=== PATIENT | female | born 1965 | race Caucasian/White ===

== ENCOUNTER 2017-08-03 14:20 | Emergency (ER) | payer OTHER ==
[2017-08-03 14:59] LABS: Glucose,Whole Blood 449 mg/dL (75-99)
[2017-08-03] MEDS ORDERED: INSULIN REGULAR 100 UNIT/ML VIAL SQ STA (15:17)
[2017-08-03] MEDS ORDERED: SODIUM CHLORIDE 0.9% 2,000 ML IV ONE (15:17)
[2017-08-03 15:38] LABS: Basophils % (A) 0 %; CH 29.3; CHCM 34.8; Eosinophils % (A) 0 %; HCT 43.5 % (34.0-46.0); HDW 2.81; HGB 14.7 gm/dL (11.4-16.0); Luc # (Auto) 0.05; Luc % (Auto) 1; Lymphocytes # (A) 1.6 k/uL (1.0-4.8); Lymphocytes % (A) 37 %; MCH 28.4 pg (25.0-35.0); MCHC 33.7 g/dL (31.0-37.0); MCV 84.4 fL (80.0-100.0); Mean Platelet Volume 7.4; Monocytes # (A) 0.2 k/uL (0-1.0); Monocytes % (A) 5 %; Neutrophils # (A) 2.5 k/uL (1.3-7.7); Neutrophils % (A) 57 %; RBC 5.16 m/uL (3.80-5.40); RDW 13.6 % (11.5-15.5); WBC 4.4 k/uL (3.8-10.6); WBC (Perox) 4.19
[2017-08-03 15:47] LABS: Anion Gap 9 mmol/L; Blood Urea Nitrogen 18 mg/dL (7-17); Calcium 9.5 mg/dL (8.4-10.2); Carbon Dioxide 26 mmol/L (22-30); Chloride 97 mmol/L (98-107); Non-African American GFR(MDRD) >60 (>60 ml/min/1.73 sqM); Potassium 4.5 mmol/L (3.5-5.1); Sodium 132 mmol/L (137-145)
[2017-08-03 15:55] LABS: Glucose 500 mg/dL (74-99)
--- NOTE | 2017-08-03 16:10 | ED ---
Recheck HPI - General Chief Complaint: Recheck/Abnormal Lab/Rx Stated Complaint: Hyperglycemia Time Seen by Provider: 08/03/17 14:38 Source: patient Mode of arrival: ambulatory Limitations: no limitations - History of Present Illness Initial Comments: This patient's 52-year-old woman who presents today because her blood sugars over 500. She states she has history of diabetes taking oral medications. She states that she had been on metformin and another medication but that the metformin was making her not feel well so that she stopped that about a month ago. She states that she ran out of her other medication for number of weeks ago. Over the past 3 days she has been more fatigued than usual and she checked her blood sugar today and found that it was over 500. She is denying other symptoms, including no fever or chills and no symptoms of infection. She states that she does have follow-up already established with the mechanical engineering technician. MD Complaint: abnormal lab -: hour(s) Associated Symptoms: other (Fatigue) - Related Data Home Medications Medication Instructions Recorded Confirmed ALPRAZolam [Xanax] 0.25 mg PO BID PRN 04/14/14 08/03/17 Cetirizine HCl [Zyrtec] 10 mg PO DAILY 04/14/14 08/03/17 Esomeprazole Magnesium [NexIUM] 40 mg PO DAILY 04/14/14 08/03/17 Fenofibrate 160 mg PO DAILY 04/14/14 08/03/17 Ibuprofen [Motrin] 800 mg PO Q8HR PRN 04/14/14 08/03/17 Lisinopril [Zestril] 10 mg PO QAM 04/14/14 08/03/17 Rosuvastatin Calcium [Crestor] 10 mg PO DAILY 04/14/14 08/03/17 Cholecalciferol [Vitamin D3] 2,000 unit PO DAILY 05/03/16 08/03/17 Fesoterodine Fumarate [Toviaz] 4 mg PO DAILY 08/03/17 08/03/17 Venlafaxine HCl ER [Effexor Xr] 150 mg PO DAILY 08/03/17 08/03/17 Allergies Allergy/AdvReac Type Severity Reaction Status Date / Time bacitracin Allergy Rash/Hives Verified 08/03/17 15:06 [From Neosporin ([id number])] bacitracin zinc Allergy Rash/Hives Verified 08/03/17 15:06 [From Neosporin ([id number])] clarithromycin [From Biaxin] Allergy Unknown Verified 08/03/17 15:06 neomycin sulfate Allergy Rash/Hives Verified 08/03/17 15:06 [From Neosporin ([id number])] polymyxin B Allergy Rash/Hives Verified 08/03/17 15:06 [From Neosporin ([id number])] rituximab [From Rituxan] Allergy Rash/Hives Verified 08/03/17 15:06 thimerosal Allergy Rash/Hives Verified 08/03/17 15:06 Review of Systems ROS Statement: Those systems with pertinent positive or pertinent negative responses have been documented in the HPI. ROS Other: All systems not noted in ROS Statement are negative. Constitutional: Denies: fever, chills Respiratory: Denies: cough, dyspnea Cardiovascular: Denies: chest pain, edema, syncope Endocrine: Reports: fatigue Gastrointestinal: Denies: abdominal pain, vomiting, diarrhea Genitourinary: Denies: dysuria, hematuria Musculoskeletal: Denies: back pain Skin: Denies: rash Neurological: Denies: headache, weakness, numbness Past Medical History Past Medical History: Diabetes Mellitus, GERD/Reflux, Hyperlipidemia, Hypertension, Rheumatoid Arthritis (RA) Additional Past Medical History / Comment(s): HX MURMUR, HX MIGRAINES, kidney stones, lithotripsy History of Any Multi-Drug Resistant Organisms: MRSA Date of last positivie culture/infection: 2005 MDRO Source:: RT AXILLA Past Surgical History: Orthopedic Surgery, Uterine Ablation Additional Past Surgical History / Comment(s): HAMMSTEVE, ORIF right ankle Past Anesthesia/Blood Transfusion Reactions: No Reported Reaction Past Psychological History: Anxiety Smoking Status: Former smoker Past Alcohol Use History: None Reported Past Drug Use History: None Reported - Past Family History Mother Additional Family Medical History / Comment(s): BRAIN ANEURYSM Father Family Medical History: Cancer Additional Family Medical History / Comment(s): COLON General Exam Limitations: no limitations General appearance: alert, in no apparent distress, obese Head exam: Present: atraumatic, normocephalic ENT exam: Present: normal oropharynx, mucous membranes moist Respiratory exam: Present: normal lung sounds bilaterally. Absent: respiratory distress, wheezes, rales, rhonchi, stridor Cardiovascular Exam: Present: regular rate, normal rhythm, normal heart sounds. Absent: systolic murmur, diastolic murmur, rubs, gallop GI/Abdominal exam: Present: soft. Absent: distended, tenderness, guarding, rebound Extremities exam: Present: normal inspection, normal capillary refill. Absent: pedal edema, calf tenderness Back exam: Present: normal inspection. Absent: CVA tenderness (R), CVA tenderness (L) Neurological exam: Present: alert Skin exam: Present: warm, dry, intact, normal color. Absent: rash Course Vital Signs 08/03/17 14:31 Temperature 97 F L Pulse Rate 89 Respiratory 18 Rate Blood Pressure 142/80 O2 Sat by Pulse 96 Oximetry Medical Decision Making - Lab Data Result diagrams: 08/03/17 15:24 08/03/17 15:24 Lab Results 08/03/17 08/03/17 08/03/17 Range/Units 14:53 15:24 15:24 WBC (3.8-10.6) k/uL RBC (3.80-5.40) m/uL Hgb (11.4-16.0) gm/dL Hct (34.0-46.0) % MCV (80.0-100.0) fL MCH (25.0-35.0) pg MCHC (31.0-37.0) g/dL RDW (11.5-15.5) % Plt Count (150-450) k/uL Neutrophils % % Lymphocytes % % Monocytes % % Eosinophils % % Basophils % % Neutrophils # (1.3-7.7) k/uL Lymphocytes # (1.0-4.8) k/uL Monocytes # (0-1.0) k/uL Eosinophils # (0-0.7) k/uL Basophils # (0-0.2) k/uL Sodium 132 L (137-145) mmol/L Potassium 4.5 (3.5-5.1) mmol/L Chloride 97 L (98-107) mmol/L Carbon Dioxide 26 (22-30) mmol/L Anion Gap 9 mmol/L BUN 18 H (7-17) mg/dL Creatinine 0.88 (0.52-1.04) mg/dL Est GFR (MDRD) Af Amer >60 (>60 ml/min/1.73 sqM) Est GFR (MDRD) Non-Af >60 (>60 ml/min/1.73 sqM) Glucose 500 H* (74-99) mg/dL POC Glucose (mg/dL) 449 H (75-99) mg/dL POC Glu Per Assessment Nurse ID McDaid, Porsha Calcium 9.5 (8.4-10.2) mg/dL Acetone, Qual Negative (Negative) 08/03/17 08/03/17 Range/Units 15:24 16:18 WBC 4.4 (3.8-10.6) k/uL RBC 5.16 (3.80-5.40) m/uL Hgb 14.7 (11.4-16.0) gm/dL Hct 43.5 (34.0-46.0) % MCV 84.4 (80.0-100.0) fL MCH 28.4 (25.0-35.0) pg MCHC 33.7 (31.0-37.0) g/dL RDW 13.6 (11.5-15.5) % Plt Count 229 (150-450) k/uL Neutrophils % 57 % Lymphocytes % 37 % Monocytes % 5 % Eosinophils % 0 % Basophils % 0 % Neutrophils # 2.5 (1.3-7.7) k/uL Lymphocytes # 1.6 (1.0-4.8) k/uL Monocytes # 0.2 (0-1.0) k/uL Eosinophils # 0.0 (0-0.7) k/uL Basophils # 0.0 (0-0.2) k/uL Sodium (137-145) mmol/L Potassium (3.5-5.1) mmol/L Chloride (98-107) mmol/L Carbon Dioxide (22-30) mmol/L Anion Gap mmol/L BUN (7-17) mg/dL Creatinine (0.52-1.04) mg/dL Est GFR (MDRD) Af Amer (>60 ml/min/1.73 sqM) Est GFR (MDRD) Non-Af (>60 ml/min/1.73 sqM) Glucose (74-99) mg/dL POC Glucose (mg/dL) 368 H (75-99) mg/dL POC Glu Per Assessment Nurse ID McDaid, Porsha Calcium (8.4-10.2) mg/dL Acetone, Qual (Negative) Disposition Clinical Impression: Hyperglycemia due to type 2 diabetes mellitus Disposition: HOME SELF-CARE Condition: Fair Instructions: Diabetic Hyperglycemia (ED) Referrals: Riley Marinelli Jr, DO [Primary Care Provider] - 1-2 days
[2017-08-03 16:20] LABS: Glucose,Whole Blood 368 mg/dL (75-99)
[2017-08-03 16:37] VITALS: RESP 17
[2017-08-03] MEDS ORDERED: SODIUM CHLORIDE 0.9% 1,000 ML IV ONE (17:15)
[2017-08-03 17:30] LABS: Glucose,Whole Blood 301 mg/dL (75-99)
[2017-08-03 18:11] VITALS: BP 130/72; PULSE 68; TEMP 97
== END 2017-08-03 18:36 | disposition home or self-care (01) ==
LOC: EC 14:20
DX: E11.65 Type 2 diabetes mellitus with hyperglycemia (principal); K21.9 Gastro-esophageal reflux disease without esophagitis; E78.5 Hyperlipidemia, unspecified; I10 Essential (primary) hypertension; M06.9 Rheumatoid arthritis, unspecified; F41.9 Anxiety disorder, unspecified; Z87.891 Personal history of nicotine dependence; Z79.84 Long term (current) use of oral hypoglycemic drugs; Z79.899 Other long term (current) drug therapy; Z88.1 Allergy status to other antibiotic agents; Z88.8 Allergy status to other drugs, medicaments and biological substances
CPT/HCPCS: 36415; 80048; 82009; 85025; 96360; 96361; 99284

== ENCOUNTER → 2019-06-01 | Outpatient (CLI) | payer OTHER ==
[2019-06-01 19:56] LABS: African American GFR (CKD) 58.9 (60.0-200.0); Albumin 4.7 g/dL (3.80-4.90); Albumin/Globulin Ratio 2.47 (1.60-3.17); Anion Gap 8.3 mmol/L (4.00-12.00); BUN/Creat Ratio 25.83 Ratio (12.00-20.00); Calcium 9.9 mg/dL (8.7-10.3); Carbon Dioxide 25.7 mmol/L (21.6-31.8); Globulin 1.9 g/dL (1.6-3.3); LDL Cholesterol,Calculated 83.2 mg/dL (0.0-131.0); Potassium 4.7 mmol/L (3.5-5.5); Total Bilirubin 0.4 mg/dL (0.2-1.2); Total Protein 6.6 g/dL (6.2-8.2); VLDL Calculation 63.8 mg/dL (5.00-40.00)
[2019-06-01 21:59] LABS: Hemoglobin A1C 6.9 % (4.0-6.0)
== END | disposition home or self-care (01) ==
LOC: LABWHC1 12:21
PROVIDERS: ATTEND Internal Medicine Endocrinology, Diabetes & Metabolism
DX: E11.65 Type 2 diabetes mellitus with hyperglycemia (principal)
CPT/HCPCS: 36415; 80053; 80061; 83036; 84443

== ENCOUNTER → 2019-06-02 | Outpatient (CLI) | payer OTHER ==
[2019-06-02 17:50] LABS: African American GFR (CKD) 53.5 (60.0-200.0); Albumin 4.5 g/dL (3.80-4.90); Albumin/Globulin Ratio 2.14 (1.60-3.17); Anion Gap 8.5 mmol/L (4.00-12.00); BUN/Creat Ratio 22.31 Ratio (12.00-20.00); Calcium 9.9 mg/dL (8.7-10.3); Carbon Dioxide 24.5 mmol/L (21.6-31.8); Globulin 2.1 g/dL (1.6-3.3); Potassium 4.5 mmol/L (3.5-5.5); Total Bilirubin 0.3 mg/dL (0.3-1.2); Total Protein 6.6 g/dL (6.2-8.2)
== END | disposition home or self-care (01) ==
LOC: LABWHC1 09:22
PROVIDERS: ATTEND Internal Medicine Endocrinology, Diabetes & Metabolism
DX: E11.65 Type 2 diabetes mellitus with hyperglycemia (principal)
CPT/HCPCS: 36415; 80053; 80061; 82043; 82570

== ENCOUNTER → 2019-10-13 | Outpatient (CLI) | payer OTHER ==
--- NOTE | 2019-10-13 15:51 | US ---
EXAMINATION TYPE: US kidneys/renal and bladder DATE OF EXAM: 10/13/2019 COMPARISON: NONE CLINICAL HISTORY: R31.9 HEMATURIA,N28.9 LOW KIDNEY FUNCTION. Abnormal labs. Hx renal stones. EXAM MEASUREMENTS: Right Kidney: 10.0 x 5.0 x 5.1 cm Left Kidney: 11.1 x 4.3 x 5.0 cm Right Kidney: No hydronephrosis or masses seen Left Kidney: Probable renal sinus cyst measures 1.7 x 1.9 x 1.7 cm. Lower pole nonshadowing echogeni c focus = 0.8 cm Bladder: distended, anechoic Bilateral Jets seen There is no evidence for hydronephrosis at this point in time. The urinary bladder is anechoic. Adonis ateral ureteral jets are seen. IMPRESSION: 1. Left lower pole nonobstructing renal calculus measures 8 mm. No hydronephrosis of either kidney. 2. Left renal sinus cyst is incidentally seen.
== END | disposition home or self-care (01) ==
LOC: RADUSWWP 15:10
PROVIDERS: ATTEND Family Medicine
DX: N20.0 Calculus of kidney (principal); Z88.5 Allergy status to narcotic agent; Z88.2 Allergy status to sulfonamides; Z88.8 Allergy status to other drugs, medicaments and biological substances
CPT/HCPCS: 76770

== ENCOUNTER → 2019-10-26 | Outpatient (CLI) | payer OTHER ==
[2019-10-26 23:38] LABS: Follicle Stimulating Hormone 40.3 mIU/mL
== END | disposition home or self-care (01) ==
LOC: LABWHC1 14:18
PROVIDERS: ATTEND Obstetrics & Gynecology
DX: N95.1 Menopausal and female climacteric states (principal); G47.00 Insomnia, unspecified; R61 Generalized hyperhidrosis; R37 Sexual dysfunction, unspecified
CPT/HCPCS: 36415; 82672; 83001; 84144; 84403

== ENCOUNTER 2020-03-28 20:07 | Emergency (ER) | payer OTHER ==
[2020-03-28 20:13] VITALS: BP 155/98; PULSE 87; RESP 22; TEMP 98
--- NOTE | 2020-03-28 21:06 | XR ---
EXAMINATION TYPE: XR chest 1V portable DATE OF EXAM: 03/28/2020 COMPARISON: 09/15/2013 HISTORY: Cough TECHNIQUE: Single frontal view of the chest is obtained. FINDINGS: There is no focal air space opacity, pleural effusion, or pneumothorax seen. The cardiac silhouette size is within normal limits. The osseous structures are intact. No overt failure. Heart size stable. IMPRESSION: No acute process.
--- NOTE | 2020-03-28 21:13 | ED ---
General Adult HPI - General Chief complaint: Shortness of Breath Stated complaint: SOB Time Seen by Provider: 03/28/20 20:22 Source: patient, RN notes reviewed Mode of arrival: ambulatory Limitations: no limitations - History of Present Illness Initial comments: 54-year-old female with a past medical history diabetes mellitus, hyperlipidemia, hypertension, GERD presents to the emergency department for a chief complaint of cough and shortness of breath. Patient has had ascites in the past week for which she has been on antibiotics. Patient states that she was very congested but now the congestion seems to have settled in her chest. Patient states she feels somewhat short of breath. Denies chest pain. Denies productive cough, states the cough is mostly dry. Denies fevers.Patient has no other complaints at this time including chest pain, abdominal pain, nausea or vomiting, headache, or visual changes. - Related Data Home Medications Medication Instructions Recorded Confirmed ALPRAZolam [Xanax] 0.25 mg PO BID PRN 04/14/14 08/21/17 Cetirizine HCl [Zyrtec] 10 mg PO DAILY 04/14/14 08/21/17 Esomeprazole Magnesium [NexIUM] 40 mg PO DAILY 04/14/14 08/21/17 Fenofibrate 160 mg PO DAILY 04/14/14 08/21/17 Ibuprofen [Motrin] 800 mg PO Q8HR PRN 04/14/14 08/21/17 Lisinopril [Zestril] 10 mg PO QAM 04/14/14 08/21/17 Rosuvastatin Calcium [Crestor] 10 mg PO DAILY 04/14/14 08/21/17 Cholecalciferol [Vitamin D3] 2,000 unit PO DAILY 05/03/16 08/21/17 Fesoterodine Fumarate [Toviaz] 4 mg PO DAILY 08/03/17 08/21/17 Venlafaxine HCl ER [Effexor Xr] 150 mg PO DAILY 08/03/17 08/21/17 Canagliflozin [Invokana] 100 mg PO DAILY 08/21/17 08/21/17 sitaGLIPtin PHOSPHATE [Januvia] 50 mg PO DAILY 08/21/17 08/21/17 Previous Rx's Medication Instructions Recorded Albuterol Inhaler [Ventolin Hfa 2 puff INHALATION Q6H PRN 5 Days 03/28/20 Inhaler] #1 inhaler predniSONE 50 mg PO DAILY #5 tablet 03/28/20 Allergies Allergy/AdvReac Type Severity Reaction Status Date / Time bacitracin Allergy Rash/Hives Verified 03/28/20 20:13 [From Neosporin ([id number])] bacitracin zinc Allergy Rash/Hives Verified 03/28/20 20:13 [From Neosporin ([id number])] clarithromycin [From Biaxin] Allergy Unknown Verified 03/28/20 20:13 neomycin sulfate Allergy Rash/Hives Verified 03/28/20 20:13 [From Neosporin ([id number])] polymyxin B Allergy Rash/Hives Verified 03/28/20 20:13 [From Neosporin ([id number])] rituximab [From Rituxan] Allergy Rash/Hives Verified 03/28/20 20:13 thimerosal Allergy Rash/Hives Verified 03/28/20 20:13 Review of Systems ROS Statement: Those systems with pertinent positive or pertinent negative responses have been documented in the HPI. ROS Other: All systems not noted in ROS Statement are negative. Past Medical History Past Medical History: Diabetes Mellitus, GERD/Reflux, Hyperlipidemia, Hypertension, Rheumatoid Arthritis (RA) Additional Past Medical History / Comment(s): HX MURMUR, HX MIGRAINES, kidney stones, lithotripsy History of Any Multi-Drug Resistant Organisms: MRSA Date of last positivie culture/infection: 2005 MDRO Source:: RT AXILLA Past Surgical History: Orthopedic Surgery, Uterine Ablation Additional Past Surgical History / Comment(s): HAMMERTOE, ORIF right ankle Past Anesthesia/Blood Transfusion Reactions: No Reported Reaction Past Psychological History: Anxiety Smoking Status: Former smoker Past Alcohol Use History: None Reported Past Drug Use History: None Reported - Past Family History Mother Additional Family Medical History / Comment(s): BRAIN ANEURYSM Father Family Medical History: Cancer Additional Family Medical History / Comment(s): COLON General Exam Limitations: no limitations General appearance: alert, in no apparent distress Head exam: Present: atraumatic, normocephalic, normal inspection Eye exam: Present: normal appearance, PERRL, EOMI. Absent: scleral icterus, conjunctival injection, periorbital swelling ENT exam: Present: normal exam, mucous membranes moist Neck exam: Present: normal inspection, full ROM. Absent: tenderness, meningismus, lymphadenopathy Respiratory exam: Present: normal lung sounds bilaterally. Absent: respiratory distress, wheezes, rales, rhonchi, stridor Cardiovascular Exam: Present: regular rate, normal rhythm, normal heart sounds. Absent: systolic murmur, diastolic murmur, rubs, gallop, clicks Neurological exam: Present: alert Course Vital Signs 03/28/20 20:10 Temperature 98.0 F Pulse Rate 87 Respiratory 22 Rate Blood Pressure 155/98 O2 Sat by Pulse 95 Oximetry EKG Findings - EKG Comments: EKG Findings:: Normal sinus rhythm, ventricular rate 80, DE interval 162, QTC 431 Medical Decision Making - Medical Decision Making Vitals are stable. Patient is 95% on room air. Heart rate is 87. EKG shows a normal sinus rhythm without depression or elevation. Chest x-ray shows no acute process. Coronavirus negative. Patient will be treated with steroids and albuterol inhaler. I did recommend she return for any worsening symptoms. - Lab Data Lab Results 03/28/20 Range/Units 21:15 Coronavirus (PCR) Not Detected (Not Detectd) Disposition Clinical Impression: Cough Disposition: HOME SELF-CARE Condition: Good Instructions (If sedation given, give patient instructions): Acute Cough (ED) Additional Instructions: Please take steroid as directed. Please use inhaler as directed. Follow up with her primary care provider. If you are having worsening symptoms or no improvement in symptoms return to the emergency room. Prescriptions: predniSONE 50 mg PO DAILY #5 tablet Albuterol Inhaler [Ventolin Hfa Inhaler] 2 puff INHALATION Q6H PRN 5 Days #1 inhaler PRN Reason: Shortness Of Breath Is patient prescribed a controlled substance at d/c from ED?: No Referrals: Riley Marinelli Jr, [Primary Care Provider] - 1-2 days Time of Disposition: 21:41
[2020-03-28] MEDS ORDERED: predniSONE 20 MG TAB PO STA (21:41)
== END 2020-03-28 21:57 | disposition home or self-care (01) ==
LOC: EC 20:07
DX: Z03.818 Encounter for observation for suspected exposure to other biological agents ruled out (principal); R05 Cough; E11.9 Type 2 diabetes mellitus without complications; K21.9 Gastro-esophageal reflux disease without esophagitis; E78.5 Hyperlipidemia, unspecified; I10 Essential (primary) hypertension; M06.9 Rheumatoid arthritis, unspecified; Z79.84 Long term (current) use of oral hypoglycemic drugs; Z79.899 Other long term (current) drug therapy; Z87.891 Personal history of nicotine dependence; Z88.1 Allergy status to other antibiotic agents; Z88.8 Allergy status to other drugs, medicaments and biological substances; Z87.19 Personal history of other diseases of the digestive system; Z86.14 Personal history of Methicillin resistant Staphylococcus aureus infection
CPT/HCPCS: 93005; 87635; 71045; 99285; J7512

== ENCOUNTER → 2020-03-28 | Outpatient (CLI) | payer OTHER ==
[2020-03-28 16:02] LABS: African American GFR (CKD) 58.9 (60.0-200.0); Albumin 4.3 g/dL (3.80-4.90); Albumin/Globulin Ratio 2.15 (1.60-3.17); Anion Gap 8.5 mmol/L (4.00-12.00); BUN/Creat Ratio 23.33 Ratio (12.00-20.00); Calcium 9.4 mg/dL (8.7-10.3); Carbon Dioxide 22.5 mmol/L (21.6-31.8); Chol/HDL Ratio 5.13; LDL Cholesterol,Calculated 88.2 mg/dL (0.0-131.0); Non-African American GFR(CKD) 50.8 (60.0-200.0); Potassium 4.4 mmol/L (3.5-5.5); Total Bilirubin 0.3 mg/dL (0.2-1.2); Total Protein 6.3 g/dL (6.2-8.2); VLDL Calculation 68.8 mg/dL (5.00-40.00)
[2020-03-28 16:22] LABS: Urine Creatinine 83.3 mg/dL
[2020-03-28 17:28] LABS: Hemoglobin A1C 7.2 % (4.0-6.0)
== END | disposition home or self-care (01) ==
LOC: LABWHC1 08:43
PROVIDERS: ATTEND Internal Medicine Endocrinology, Diabetes & Metabolism
DX: E11.65 Type 2 diabetes mellitus with hyperglycemia (principal)
CPT/HCPCS: 36415; 80053; 80061; 82043; 82570; 83036; 84443

== ENCOUNTER → 2020-05-17 | Outpatient (CLI) | payer OTHER ==
--- NOTE | 2020-05-17 11:33 | US ---
EXAMINATION TYPE: US abdomen complete DATE OF EXAM: 05/17/2020 COMPARISON: NONE CLINICAL HISTORY: N20.9 Kidney Stones. Hx of kidney stones. EXAM MEASUREMENTS: Liver Length: 17.6 cm Gallbladder Wall: .2 cm CBD: .4 cm Spleen: 12.7 cm Right Kidney: 9.3 x 4.8 x 4.6 cm Left Kidney: 10.8 x 4.2 x 4.2 cm Pancreas: Tail obscured by overlying bowel gas Liver: Increased attenuation Gallbladder: No stones seen Evidence for sonographic Maurer's sign: No CBD: wnl Spleen: wnl Right Kidney: wnl Left Kidney: Anechoic area seen mid pole 1.9 x 1.3 x 1.2 cm as seen on previous. Upper IVC: wnl Abd Aorta: wnl The liver is homogenous. The intrahepatic portion of the IVC and proximal abdominal aorta are within normal limits. There is no evidence of cholelithiasis. Common bile duct is unremarkable. The visu alized portions of the pancreas are homogenous. The spleen is unremarkable. Kidneys are symmetric a nd free of hydronephrosis. No renal lesions are seen. IMPRESSION: No distinct abnormality seen.
--- NOTE | 2020-05-17 13:00 | XR ---
EXAMINATION TYPE: XR abdomen 2V DATE OF EXAM: 05/17/2020 COMPARISON: 05/03/2016 HISTORY: Pain TECHNIQUE: One view abdominal series FINDINGS: The osseous structures are intact. The bowel gas pattern is nonspecific. Arthropathy of the hips. Th ere is degenerative and hypertrophic change of the spine. Right kidney: No suspicious calcifications. Left kidney: Approximate 5 calcifications in the lower pole largest measuring 3 mm in diameter.. IMPRESSION: 1. Left lower pole renal calculus appears somewhat smaller on today's exam relative exam of 2015. The re appear to be 5 small calcifications the largest measuring 3 mm in diameter..
== END | disposition home or self-care (01) ==
LOC: RADUSWWP 09:49
PROVIDERS: ATTEND Urology
DX: N20.0 Calculus of kidney (principal); Z88.1 Allergy status to other antibiotic agents; Z88.8 Allergy status to other drugs, medicaments and biological substances
CPT/HCPCS: 74019; 76700

== ENCOUNTER → 2021-02-14 | Outpatient (CLI) | payer OTHER ==
[2021-02-14 17:00] LABS: African American GFR (CKD) 53.1 (60.0-200.0); Albumin 4.8 g/dL (3.80-4.90); Albumin/Globulin Ratio 2.18 (1.60-3.17); Anion Gap 6.9 mmol/L (4.00-12.00); Calcium 9.7 mg/dL (8.7-10.3); Carbon Dioxide 26.1 mmol/L (21.6-31.8); Chol/HDL Ratio 5.14; Globulin 2.2 g/dL (1.6-3.3); LDL Cholesterol,Calculated 111.4 mg/dL (0.0-131.0); Non-African American GFR(CKD) 45.8 (60.0-200.0); Total Bilirubin 0.3 mg/dL (0.3-1.2); VLDL Calculation 62.6 mg/dL (5.00-40.00)
[2021-02-14 18:33] LABS: Hemoglobin A1C 7.1 % (4.0-6.0)
== END | disposition home or self-care (01) ==
LOC: LABWHC1 08:57
PROVIDERS: ATTEND Internal Medicine Endocrinology, Diabetes & Metabolism
DX: E11.65 Type 2 diabetes mellitus with hyperglycemia (principal)
CPT/HCPCS: 36415; 80053; 80061; 82043; 82570; 83036; 84443

== ENCOUNTER → 2022-10-22 | Outpatient (CLI) | payer OTHER ==
[2022-10-22 18:43] LABS: Albumin 4.6 g/dL (3.8-4.9); Albumin/Globulin Ratio 1.97 (1.60-3.17); Anion Gap 10.8 mmol/L (10.00-18.00); BUN/Creat Ratio 23.41 Ratio (12.00-20.00); Blood Urea Nitrogen 31.6 mg/dL (9.0-27.0); Calcium 9.9 mg/dL (8.7-10.3); Carbon Dioxide 21.8 mmol/L (20.0-27.5); Globulin 2.3 g/dL (1.6-3.3); Non-African American GFR(CKD) 43.2 (60.0-200.0); Potassium 4.6 mmol/L (3.5-5.5); Total Bilirubin 0.2 mg/dL (0.30-1.20); Total Protein 6.9 g/dL (6.2-8.2)
[2022-10-22 20:37] LABS: Urine Creatinine 44.3 mg/dL (28.0-217.0)
== END | disposition home or self-care (01) ==
LOC: LABWHC1 13:21
PROVIDERS: ATTEND Internal Medicine Endocrinology, Diabetes & Metabolism
DX: E11.65 Type 2 diabetes mellitus with hyperglycemia (principal)
CPT/HCPCS: 36415; 80053; 82043; 82570; 83036; 84443

== ENCOUNTER → 2022-10-23 | Outpatient (CLI) | payer OTHER ==
[2022-10-23 14:49] LABS: LDL Cholesterol,Calculated 113.5 mg/dL (0.0-131.0)
== END | disposition home or self-care (01) ==
LOC: LABWHC1 08:09
PROVIDERS: ATTEND Internal Medicine Endocrinology, Diabetes & Metabolism
DX: E11.65 Type 2 diabetes mellitus with hyperglycemia (principal)
CPT/HCPCS: 36415; 80061

== ENCOUNTER → 2024-03-05 | Outpatient (CLI) | payer OTHER ==
[2024-03-05 19:18] LABS: ALT 54 U/L (8-44); AST 37 U/L (13-35); Albumin 4.8 g/dL (3.8-4.9); Albumin/Globulin Ratio 1.78 Ratio (1.60-3.17); Alkaline Phosphatase 150 U/L (41-126); BUN/Creat Ratio 14.78 Ratio (12.00-20.00); Blood Urea Nitrogen 13.3 mg/dL (9.0-27.0); Calcium 10.2 mg/dL (8.7-10.3); Carbon Dioxide 24.6 mmol/L (21.6-31.8); Chloride 102 mmol/L (96-109); Chol/HDL Ratio 5.31 Ratio; Globulin 2.7 g/dL (1.6-3.3); Glucose 101 mg/dL (70-110); Potassium 4.8 mmol/L (3.5-5.5); Sodium 139 mmol/L (135-145); Total Bilirubin 0.5 mg/dL (0.3-1.2); Total Protein 7.5 g/dL (6.2-8.2)
[2024-03-05 20:46] LABS: Microalbumin Creatinine Ratio <10 mg/g Cr (0-30)
== END | disposition home or self-care (01) ==
LOC: LABWHC1 11:11
PROVIDERS: ATTEND Internal Medicine Endocrinology, Diabetes & Metabolism
DX: E11.65 Type 2 diabetes mellitus with hyperglycemia (principal)
CPT/HCPCS: 36415; 80053; 80061; 82043; 82570; 83036; 83721; 84443